=== PATIENT | male | born 1940 | race Caucasian/White ===

== ENCOUNTER 2020-06-05 13:22 | Outpatient (CLI) | payer MEDICARE ==
[2020-06-06 01:47] LABS: SARS-CoV-2 PCR by NAA Not Detected (NotDetected)
== END 2020-06-05 13:23 | disposition home or self-care (01) ==
LOC: CSHLAB 13:22
PROVIDERS: ATTEND Internal Medicine Critical Care Medicine
DX: Z20.822 Contact with and (suspected) exposure to COVID-19 (principal); I26.99 Other pulmonary embolism without acute cor pulmonale; J44.9 Chronic obstructive pulmonary disease, unspecified
CPT/HCPCS: 87635; U0003; U0005

== ENCOUNTER 2020-06-10 11:41 | Outpatient (CLI) | payer MEDICARE | END 2020-06-10 11:42 | disposition home or self-care (01) | LOC: CSHCP 11:41 | PROVIDERS: ATTEND Internal Medicine Critical Care Medicine | DX: I26.99 Other pulmonary embolism without acute cor pulmonale (principal); J44.9 Chronic obstructive pulmonary disease, unspecified; Z86.16 Personal history of COVID-19; R94.2 Abnormal results of pulmonary function studies | CPT/HCPCS: 94060; 94726; 94729; 94760 ==